=== PATIENT | male | born 1995 | race Caucasian/White ===

== ENCOUNTER → 2023-03-08 10:45 | Outpatient (BNVA) | payer MEDICARE, MEDICAID, SELFPAY | PROVIDERS: PCP Family Medicine; Visit Provider Specialist | DX: G40.909 Epilepsy, unspecified, not intractable, without status epilepticus (principal); G40.822 Epileptic spasms, not intractable, without status epilepticus; G80.9 Cerebral palsy, unspecified | CPT/HCPCS: 99205 ==

== ENCOUNTER → 2023-06-10 11:01 | Outpatient (BNVA) | payer MEDICARE, MEDICAID, SELFPAY | PROVIDERS: PCP Family Medicine; Visit Provider Specialist | DX: G40.822 Epileptic spasms, not intractable, without status epilepticus (principal); G80.9 Cerebral palsy, unspecified | CPT/HCPCS: 99214 ==

== ENCOUNTER → 2024-08-21 15:00 | Outpatient (BNVA) | payer MEDICARE, MEDICAID, SELFPAY | PROVIDERS: PCP Family Medicine; Visit Provider Specialist | DX: G40.909 Epilepsy, unspecified, not intractable, without status epilepticus (principal); G40.822 Epileptic spasms, not intractable, without status epilepticus; G80.9 Cerebral palsy, unspecified | CPT/HCPCS: 99214 ==

== ENCOUNTER → 2025-10-16 13:33 | Outpatient (BNVA) | payer MEDICARE, MEDICAID, SELFPAY | PROVIDERS: PCP Family Medicine; Visit Provider Specialist | DX: G40.822 Epileptic spasms, not intractable, without status epilepticus (principal); G80.3 Athetoid cerebral palsy | CPT/HCPCS: 99214 ==